=== PATIENT | female | born 1975 | race Caucasian/White ===

== ENCOUNTER 2017-05-08 00:26 | Emergency (ER) | payer MEDICAID ==
[~2017-05-08] VITALS: Ht 170.2 cm; Wt 85.0 kg
[2017-05-08] MEDS ORDERED: TRAMADOL 50MG TABLET PO ONE (03:00)
[2017-05-08] MEDS ORDERED: KETOROLAC 60MG/2ML VIAL IM ONE (04:30)
[2017-05-08 05:22] VITALS: BP 117/79
== END 2017-05-08 05:24 | disposition home or self-care (01) ==
LOC: ER 03:16
DX: M25.562 Pain in left knee (principal); I11.0 Hypertensive heart disease with heart failure; I50.9 Heart failure, unspecified; F17.200 Nicotine dependence, unspecified, uncomplicated; F12.10 Cannabis abuse, uncomplicated; F41.9 Anxiety disorder, unspecified; Z86.718 Personal history of other venous thrombosis and embolism; Z88.8 Allergy status to other drugs, medicaments and biological substances
CPT/HCPCS: 73552; 73562; 73590; 96372; 99284; J1885

== ENCOUNTER 2017-10-17 08:42 | Emergency (ER) | payer MEDICAID ==
[~2017-10-17] VITALS: Ht 172.7 cm; Wt 77.6 kg
[2017-10-17 09:03] VITALS: BP 119/71
[2017-10-17] MEDS ORDERED: BACITRACIN ZINC OINT UDPKT TOP ONE (10:45)
[2017-10-17] MEDS ORDERED: LIDOCAINE HCL 1% 20ML VIAL (Pyxis) INJ MC ONE (10:45)
[2017-10-17] MEDS ORDERED: SODIUM CHLORIDE 0.9% 1000ML BAG (SEPSIS BOLUS) IV ONE (10:45)
[2017-10-17] MEDS ORDERED: IBUPROFEN 600MG TABLET PO ONE (12:00)
[2017-10-17] MEDS ORDERED: AMOXICILLIN/POTASSIUM CLAVULANATE 875/125MG TAB PO ONE (12:00)
[2017-10-17] MEDS ORDERED: ACETAMINOPHEN 500MG TABLET PO ONE (12:00)
[2017-10-17] MEDS ORDERED: CEPHALEXIN 500MG CAPSULE PO ONE (12:00)
== END 2017-10-17 12:15 | disposition home or self-care (01) ==
LOC: ER 09:08
DX: L02.414 Cutaneous abscess of left upper limb (principal); I11.0 Hypertensive heart disease with heart failure; I50.9 Heart failure, unspecified; F17.200 Nicotine dependence, unspecified, uncomplicated; F12.10 Cannabis abuse, uncomplicated; F11.10 Opioid abuse, uncomplicated
CPT/HCPCS: 10060; 87070; 87077; 87205; 99284; J3490; 99283; J7030

== ENCOUNTER 2017-10-23 20:16 | Emergency (ER) | payer MEDICAID ==
[~2017-10-23] VITALS: Ht 172.7 cm; Wt 80.0 kg
[2017-10-24] MEDS ORDERED: SODIUM CHLORIDE 0.9% 1,000 ML IV ONE (01:22)
[2017-10-24 02:02] LABS: CHLORIDE 104 mEq/L (98-107)
[2017-10-24 02:04] LABS: BASOPHILS % 0.6 % (0.0-2.0); CLARITY URINE CLOUDY (CLEAR); COLOR URINE DARK YELLOW (YELLOW); EOSINOPHILS % 2.8 % (0.0-5.0); GLUCOSE URINE NEGATIVE (NEGATIVE); HEMATOCRIT. 34.6 % (36.0-48.0); HEMOGLOBIN. 11.2 g/dL (12.0-16.0); KETONES URINE NEGATIVE (NEGATIVE); LEUKOCYTE ESTERASE URINE NEGATIVE (NEGATIVE); LYMPHOCYTES % 23.9 % (20.0-50.0); MEAN CORPUSCULAR HEMOGLOBIN 27.2 pg (28.0-32.0); MEAN CORPUSCULAR VOLUME 84.1 fL (81.0-99.0); MEAN PLATELET VOLUME 7.7 fl (7.4-10.4); MONOCYTES % 9.1 % (2.0-8.0); NEUTROPHILS % 63.6 % (40.0-76.0); NITRITE URINE NEGATIVE (NEGATIVE); OCCULT BLOOD URINE NEGATIVE (NEGATIVE); PLATELET 308 x1000/uL (130-400); PROTEIN URINE 2+ (NEGATIVE); RED BLOOD CELL COUNT 4.11 mill/uL (4.2-5.4); RED CELL DISTRIBUTION WIDTH 14.8 % (11.6-14.6); SPECIFIC GRAVITY URINE 1.033 (1.005-1.030)
[2017-10-24 02:11] LABS: CARBON DIOXIDE 28 mEq/L (21-32); ETHANOL BLOOD < 10 mg/dL
[2017-10-24 03:38] VITALS: BP 142/91
[2017-10-24 15:35] LABS: *BARBITURATES SCREEN URINE NEGATIVE (NEGATIVE); *BENZODIAZEPINES SCREEN URINE NEGATIVE (NEGATIVE); *COCAINE SCREEN URINE NEGATIVE (NEGATIVE); METHADONE URINE SCREEN NEGATIVE (NEGATIVE); PHENCYCLIDINE URINE SCREEN NEGATIVE (NEGATIVE)
[2017-10-24 15:40] LABS: *AMPHETAMINES SCREEN URINE PRESUMTIVE POSITIVE (NEGATIVE); CANNABINOID URINE SCREEN PRESUMTIVE POSITIVE (NEGATIVE); OPIATES URINE SCREEN PRESUMTIVE POSITIVE (NEGATIVE)
== END 2017-10-24 05:21 | disposition left against medical advice (07) ==
LOC: ER 20:16
DX: T40.1X1A Poisoning by heroin, accidental (unintentional), initial encounter (principal); E86.0 Dehydration; I11.0 Hypertensive heart disease with heart failure; I50.9 Heart failure, unspecified; F17.200 Nicotine dependence, unspecified, uncomplicated; F15.10 Other stimulant abuse, uncomplicated; Z88.6 Allergy status to analgesic agent; Y92.89 Other specified places as the place of occurrence of the external cause
CPT/HCPCS: 36415; 80053; 80305; 81001; 81025; 85025; 96360; 96361; 99285; G0482; Z7610; J7030

== ENCOUNTER 2017-11-23 02:28 | Emergency (ER) | payer MEDICAID ==
[~2017-11-23] VITALS: Ht 172.7 cm; Wt 78.0 kg
[2017-11-23 02:41] VITALS: BP 130/88
== END 2017-11-23 07:38 | disposition left against medical advice (07) ==
LOC: ER 02:28
DX: Z53.21 Procedure and treatment not carried out due to patient leaving prior to being seen by health care provider (principal)

== ENCOUNTER 2017-11-23 13:29 | Emergency (ER) | payer MEDICAID | END 2017-11-23 14:25 | disposition left against medical advice (07) | LOC: ER 14:14 | DX: Z53.21 Procedure and treatment not carried out due to patient leaving prior to being seen by health care provider (principal) ==

== ENCOUNTER 2017-11-23 14:55 | Emergency (ER) | payer MEDICAID ==
[~2017-11-23] VITALS: Ht 172.7 cm; Wt 78.0 kg
[2017-11-23 15:38] VITALS: BP 123/65
== END 2017-11-23 18:59 | disposition left against medical advice (07) ==
LOC: ER 16:38
DX: Z53.21 Procedure and treatment not carried out due to patient leaving prior to being seen by health care provider (principal)

== ENCOUNTER 2018-02-16 08:19 | Emergency (ER) | payer MEDICAID ==
[~2018-02-16] VITALS: Ht 170.2 cm; Wt 72.0 kg
[~2018-02-16 08:19] MED LIST: ALPR2TAB2 PO
[2018-02-16 08:59] VITALS: BP 142/101
== END 2018-02-16 09:34 | disposition left against medical advice (07) ==
LOC: ER 08:29
DX: Z53.21 Procedure and treatment not carried out due to patient leaving prior to being seen by health care provider (principal); I50.9 Heart failure, unspecified; I10 Essential (primary) hypertension; M79.7 Fibromyalgia; F19.10 Other psychoactive substance abuse, uncomplicated

== ENCOUNTER 2018-02-19 17:57 | Emergency (ER) | payer MEDICAID ==
[~2018-02-19] VITALS: Ht 170.2 cm; Wt 80.0 kg
[2018-02-19 18:13] VITALS: BP 121/73
[2018-02-19] MEDS ORDERED: IBUPROFEN 600MG TABLET PO STA (18:21)
[2018-02-19 18:50] LABS: BASOPHILS % 0.5 % (0.0-2.0); EOSINOPHILS % 3.6 % (0.0-5.0); HEMATOCRIT. 33.2 % (36.0-48.0); HEMOGLOBIN. 10.6 g/dL (12.0-16.0); LYMPHOCYTES % 26.6 % (20.0-50.0); MEAN CORPUSCULAR VOLUME 77.8 fL (81.0-99.0); MEAN PLATELET VOLUME 7.9 fl (7.4-10.4); MONOCYTES % 7.5 % (2.0-8.0); NEUTROPHILS % 61.8 % (40.0-76.0); PLATELET 311 x1000/uL (130-400); RED BLOOD CELL COUNT 4.26 mill/uL (4.2-5.4); RED CELL DISTRIBUTION WIDTH 18.1 % (11.6-14.6)
[2018-02-19 18:58] LABS: CHLORIDE 102 mEq/L (98-107)
[2018-02-19] MEDS ORDERED: CEPHALEXIN 500MG CAPSULE PO ONE (19:30)
[2018-02-19] MEDS ORDERED: SULFAMETHOXAZOLE/TRIMETHOPRIM 800/160MG TABLET PO ONE (19:30)
== END 2018-02-19 20:14 | disposition home or self-care (01) ==
LOC: ER 18:32
DX: L03.113 Cellulitis of right upper limb (principal); M54.9 Dorsalgia, unspecified; F15.10 Other stimulant abuse, uncomplicated; I50.9 Heart failure, unspecified; F17.200 Nicotine dependence, unspecified, uncomplicated; Z88.6 Allergy status to analgesic agent
CPT/HCPCS: 36415; 80053; 85025; 99285

== ENCOUNTER 2018-06-18 07:39 | Emergency (ER) | payer MEDICAID ==
[~2018-06-18] VITALS: Ht 172.7 cm; Wt 70.0 kg
[2018-06-18 07:50] VITALS: BP 136/81
== END 2018-06-18 10:26 | disposition left against medical advice (07) ==
LOC: ER 07:39
DX: L02.11 Cutaneous abscess of neck (principal); Z53.21 Procedure and treatment not carried out due to patient leaving prior to being seen by health care provider

== ENCOUNTER 2020-01-19 11:23 | Emergency (ER) | payer SELFPAY ==
[~2020-01-19] VITALS: Ht 170.2 cm; Wt 66.0 kg
[2020-01-19 11:26] VITALS: BP 130/81
[2020-01-19] MEDS ORDERED: SULFAMETHOXAZOLE/TRIMETHOPRIM 800/160MG TABLET PO ONE (11:45)
[2020-01-19] MEDS ORDERED: CEPHALEXIN 250MG CAPSULE PO ONE (11:45)
[2020-01-25] MEDS ORDERED: SERT100T PO (06:21)
== END 2020-01-19 12:38 | disposition home or self-care (01) ==
LOC: ER 11:23
DX: Z02.2 Encounter for examination for admission to residential institution (principal); F15.10 Other stimulant abuse, uncomplicated; F11.10 Opioid abuse, uncomplicated; L02.416 Cutaneous abscess of left lower limb; Z71.51 Drug abuse counseling and surveillance of drug abuser
CPT/HCPCS: 99283

== ENCOUNTER 2024-01-31 14:07 | Emergency (ER) | payer OTHER ==
[~2024-01-31] VITALS: Ht 170.2 cm; Wt 68.0 kg
[~2024-01-31 14:07] MED LIST changes: +CARV6.2548 MT; +FURO-151 PO; +SERT100T PO
[2024-01-31 14:24] VITALS: O2SAT 100
[2024-01-31 16:10] LABS: BASOPHILS % 0.5 % (0.0-2.0); EOSINOPHILS % 2.1 % (0.0-5.0); HEMATOCRIT. 37.4 % (36.0-48.0); HEMOGLOBIN. 12.2 g/dL (12.0-16.0); LYMPHOCYTES % 16.7 % (20.0-50.0); MEAN CORPUSCULAR HEMOGLOBIN 28.1 pg (28.0-32.0); MEAN CORPUSCULAR HGB CONC 32.6 g/dL (31.0-37.0); MEAN CORPUSCULAR VOLUME 86.1 fL (81.0-99.0); MEAN PLATELET VOLUME 9.1 fl (7.4-10.4); MONOCYTES % 8.8 % (2.0-8.0); NEUTROPHILS % 71.9 % (40.0-76.0); PLATELET 225 x1000/uL (130-400); RED BLOOD CELL COUNT 4.35 mill/uL (4.2-5.4); RED CELL DISTRIBUTION WIDTH 16.3 % (11.6-14.6); WHITE BLOOD COUNT 7.6 x1000/uL (4.5-11.0)
[2024-01-31 16:24] LABS: INR 1.1; PROTHROMBIN TIME 12.5 sec (9.6-11.0)
[2024-01-31 16:29] LABS: ALANINE AMINOTRANSFERASE 20 IU/L (10-49); ALBUMIN 3.8 g/dL (3.2-4.8); ASPARTATE AMINOTRANSFERASE 32 IU/L (<34); BILIRUBIN TOTAL 1.3 mg/dL (0.1-1.0); CALCIUM 8.7 mg/dL (8.7-10.4); CARBON DIOXIDE 27 mEq/L (21-32); CHLORIDE 99 mEq/L (98-107); CREATININE 1.1 mg/dL (0.6-1.0); GLUCOSE 121 mg/dL (70-105); POTASSIUM 3.5 mEq/L (3.5-5.1); PROTEIN TOTAL 7.3 g/dL (6.0-8.3); SODIUM 134 mEq/L (136-145); TROPONIN I HIGH SENSITIVITY 26 ng/L (3.0-34); UREA NITROGEN BLOOD 20 mg/dL (9-23)
[2024-01-31] MEDS ORDERED: POTA-354 MT (17:36)
[2024-01-31] MEDS: FUROSEMIDE 40MG TABLET PO NR (18:25)
[2024-01-31] MEDS: POTASSIUM CHLORIDE 20MEQ TABLET SR PO NR (18:25)
[2024-01-31 18:27] VITALS: BP 120/80; PULSE 100; RESP 18; TEMP 97.9
== END 2024-01-31 18:28 | disposition home or self-care (01) ==
LOC: ER 14:07
DX: I50.9 Heart failure, unspecified (principal); F41.9 Anxiety disorder, unspecified; I11.0 Hypertensive heart disease with heart failure; Z98.890 Other specified postprocedural states; Z88.8 Allergy status to other drugs, medicaments and biological substances
CPT/HCPCS: 36415; 71045; 80053; 83880; 84484; 85025; 93005; 99285

== ENCOUNTER 2024-04-23 20:27 | Inpatient (IN) | payer OTHER ==
[~2024-04-23] VITALS: Ht 165.1 cm; Wt 75.7 kg
[~2024-04-23 20:27] MED LIST changes: +ASPI-1497 MT; +ATOR20TA65 MT; +CARV3.1242 MT; -CARV6.2548 MT; -FURO-151 PO; +FURO80TA3 MT; +FURO80TA87 MT; +HYDR-4009 MT; +LOSA25TA26 MT; +POTA-354 MT; +SPIR25TA6 MT
[2024-04-23 20:37] VITALS: O2SAT 96
[2024-04-23] MEDS: FUROSEMIDE 40MG/4ML VIAL IVP STA (21:37)
[2024-04-23 22:09] LABS: BG BASE EXCESS -4.6 mmol/L (-2.0-2.0); BG CARBOXYHEMOGLOBIN 1.1 % (0.5-1.5); BG DEOXYHEMOGLOBIN 4.5 % (0.0-5.0); BG HCO3 ACT 18.6 mmol/L (22.0-26.0); BG METHEMOGLOBIN 0.2 % (0.0-1.5); BG OXYGEN SATURATION 95.4 % (92.0-98.5); BG OXYHEMOGLOBIN 94.2 % (94.0-97.0); BG PCO2 29.1 mmHg (35.0-45.0); BG PH 7.423 (7.350-7.450); BG PO2 82.5 mmHg (75.0-100.0); BG SAMPLE SITE RIGHT BRACHIAL; BG TOTAL HEMOGLOBIN 13.4 g/dL (12.0-18.0); BG VENT MODE ROOM AIR
[2024-04-23 22:10] LABS: BASOPHILS % 0.6 % (0.0-2.0); EOSINOPHILS % 0.6 % (0.0-5.0); HEMATOCRIT. 36.1 % (36.0-48.0); HEMOGLOBIN. 11.8 g/dL (12.0-16.0); LYMPHOCYTES % 24.5 % (20.0-50.0); MEAN CORPUSCULAR HEMOGLOBIN 28.3 pg (28.0-32.0); MEAN CORPUSCULAR HGB CONC 32.6 g/dL (31.0-37.0); MEAN CORPUSCULAR VOLUME 86.9 fL (81.0-99.0); MEAN PLATELET VOLUME 8.8 fl (7.4-10.4); MONOCYTES % 14.1 % (2.0-8.0); NEUTROPHILS % 60.2 % (40.0-76.0); PLATELET 272 x1000/uL (130-400); RED BLOOD CELL COUNT 4.15 mill/uL (4.2-5.4); RED CELL DISTRIBUTION WIDTH 18.1 % (11.6-14.6); WHITE BLOOD COUNT 6.2 x1000/uL (4.5-11.0)
[2024-04-23 22:24] LABS: CHLORIDE 103 mEq/L (98-107); POTASSIUM 3.8 mEq/L (3.5-5.1); SODIUM 133 mEq/L (136-145)
[2024-04-23 22:25] LABS: CARBON DIOXIDE 20 mEq/L (21-32)
[2024-04-23 22:26] LABS: CALCIUM 8.9 mg/dL (8.7-10.4)
[2024-04-23 22:27] LABS: HCG SCREEN NEGATIVE
[2024-04-23 22:30] LABS: CREATININE 1.1 mg/dL (0.6-1.0); GLUCOSE 103 mg/dL (70-105); UREA NITROGEN BLOOD 26 mg/dL (9-23)
[2024-04-23 22:34] LABS: TROPONIN I HIGH SENSITIVITY 40 ng/L (3.0-34)
[2024-04-24] MEDS: ASPIRIN 325MG EC TABLET PO NR (04:55)
[2024-04-24] MEDS: ENOXAPARIN 60MG/0.6ML SYR SUBCUT NR (04:56)
[2024-04-24] MEDS ORDERED: ONDANSETRON HCL 4MG/2ML INJ IV PRN (11:00)
[2024-04-24] MEDS ORDERED: CLONIDINE 0.1MG TABLET PO PRN (11:00)
[2024-04-24] MEDS ORDERED: ACETAMINOPHEN 325MG TABLET PO PRN ×2 (11:00)
[2024-04-24] MEDS ORDERED: DOCUSATE SODIUM 100MG CAPSULE PO PRN (11:00)
[2024-04-24] MEDS: FUROSEMIDE 40MG/4ML VIAL IVP SCH ×2 (11:00→18:00)
[2024-04-24] MEDS ORDERED: IPRATROPIUM/ALBUTEROL 0.5-3(2.5)MG/3ML NEB HHN PRN (11:00)
[2024-04-24] MEDS: SPIRONOLACTONE 25MG TABLET PO SCH (12:00)
[2024-04-24 17:25] VITALS: BP 113/63; PULSE 102; RESP 20; TEMP 97.9
[2024-04-24 18:19] VITALS: BP 113/73; PULSE 102; RESP 20; TEMP 97.1
[2024-04-24 20:00] VITALS: BP 125/83; PULSE 101; RESP 20; TEMP 97.6
[2024-04-24] MEDS: LORAZEPAM 0.5MG TABLET PO PRN (20:10)
[2024-04-25 00:01] VITALS: BP 123/81; PULSE 105; RESP 20; TEMP 97.6
[2024-04-25 03:28] VITALS: BP 127/91; PULSE 99; RESP 20; TEMP 97
[2024-04-25 06:06] LABS: BASOPHILS % 0.6 % (0.0-2.0); EOSINOPHILS % 1.4 % (0.0-5.0); HEMATOCRIT. 40.3 % (36.0-48.0); HEMOGLOBIN. 13.2 g/dL (12.0-16.0); LYMPHOCYTES % 13.7 % (20.0-50.0); MEAN CORPUSCULAR HEMOGLOBIN 28.5 pg (28.0-32.0); MEAN CORPUSCULAR HGB CONC 32.6 g/dL (31.0-37.0); MEAN CORPUSCULAR VOLUME 87.3 fL (81.0-99.0); MEAN PLATELET VOLUME 8.8 fl (7.4-10.4); MONOCYTES % 9.5 % (2.0-8.0); NEUTROPHILS % 74.8 % (40.0-76.0); PLATELET 239 x1000/uL (130-400); RED BLOOD CELL COUNT 4.62 mill/uL (4.2-5.4); RED CELL DISTRIBUTION WIDTH 18.1 % (11.6-14.6); WHITE BLOOD COUNT 8.1 x1000/uL (4.5-11.0)
[2024-04-25 06:17] LABS: POTASSIUM 3.8 mEq/L (3.5-5.1)
[2024-04-25 06:18] LABS: CALCIUM 8.5 mg/dL (8.7-10.4)
[2024-04-25 06:22] LABS: CREATININE 1.1 mg/dL (0.6-1.0)
[2024-04-25 08:00] VITALS: BP 122/83; PULSE 100; RESP 18; TEMP 97.8
[2024-04-25] MEDS: ALPRAZOLAM 0.5 MG TABLET PO PRN (11:49)
[2024-04-25] MEDS: BUMETANIDE 1MG/4ML VIAL IV SCH (11:49)
[2024-04-25 12:00] VITALS: BP 134/84; PULSE 105; RESP 18; TEMP 97.6
[2024-04-25 12:45] LABS: CLARITY URINE CLEAR (CLEAR); COLOR URINE DARK YELLOW (YELLOW); GLUCOSE URINE NEGATIVE (NEGATIVE); KETONES URINE NEGATIVE (NEGATIVE); LEUKOCYTE ESTERASE URINE NEGATIVE (NEGATIVE); NITRITE URINE NEGATIVE (NEGATIVE); OCCULT BLOOD URINE NEGATIVE (NEGATIVE); PH URINE 5.5 (4.5-8.0); PROTEIN URINE 2+ (NEGATIVE); SPECIFIC GRAVITY URINE 1.034 (1.005-1.030)
[2024-04-25 12:51] LABS: *AMPHETAMINES SCREEN URINE PRESUMPTIVE POSITIVE (NEGATIVE); *BARBITURATES SCREEN URINE NEGATIVE (NEGATIVE); *BENZODIAZEPINES SCREEN URINE NEGATIVE (NEGATIVE); *COCAINE SCREEN URINE NEGATIVE (NEGATIVE); METHADONE URINE SCREEN NEGATIVE (NEGATIVE); OPIATES URINE SCREEN NEGATIVE (NEGATIVE)
[2024-04-25 12:52] LABS: CANNABINOID URINE SCREEN NEGATIVE (NEGATIVE); ECSTASY MDMA SCREEN URINE CONF.TEST INDICATED (NEGATIVE); PHENCYCLIDINE URINE SCREEN NEGATIVE (NEGATIVE)
[2024-04-25 13:00] LABS: RBC URINE 0-2 /hpf (0-2); WBC URINE 0-2 /hpf (0-2)
[2024-04-25 13:01] LABS: BACTERIA URINE NONE SEEN; SQUAMOUS EPITHELIAL CELL URINE 1+ /lpf (RARE/1+); YEAST URINE NONE SEEN
[2024-04-25 16:00] VITALS: BP 124/82; PULSE 68; RESP 18; TEMP 97.7
[2024-04-25 20:00] VITALS: BP 112/72; PULSE 94; RESP 18; TEMP 96.4
[2024-04-26] VITALS: BP 101/60; PULSE 60; RESP 18; TEMP 97
[2024-04-26 04:00] VITALS: PULSE 85; RESP 18; TEMP 97
[2024-04-26 05:56] LABS: BASOPHILS % 0.3 % (0.0-2.0); EOSINOPHILS % 3.5 % (0.0-5.0); HEMATOCRIT. 38.3 % (36.0-48.0); HEMOGLOBIN. 12.7 g/dL (12.0-16.0); LYMPHOCYTES % 21.3 % (20.0-50.0); MEAN CORPUSCULAR HEMOGLOBIN 28.2 pg (28.0-32.0); MEAN CORPUSCULAR HGB CONC 33.3 g/dL (31.0-37.0); MEAN CORPUSCULAR VOLUME 84.9 fL (81.0-99.0); MEAN PLATELET VOLUME 8.7 fl (7.4-10.4); MONOCYTES % 10.9 % (2.0-8.0); PLATELET 250 x1000/uL (130-400); RED BLOOD CELL COUNT 4.51 mill/uL (4.2-5.4); RED CELL DISTRIBUTION WIDTH 17.9 % (11.6-14.6); WHITE BLOOD COUNT 7.3 x1000/uL (4.5-11.0)
[2024-04-26 06:04] LABS: POTASSIUM 3.6 mEq/L (3.5-5.1)
[2024-04-26 06:06] LABS: CALCIUM 8.7 mg/dL (8.7-10.4)
[2024-04-26 08:00] VITALS: BP 115/69; PULSE 81; RESP 21; TEMP 97.6
[2024-04-26] MEDS: BUSPIRONE HCL 10MG TABLET PO SCH (09:00)
[2024-04-26] MEDS: SERTRALINE HCL 50MG TABLET PO SCH (09:00)
== END 2024-04-26 18:04 | disposition left against medical advice (07) | DRG 194 ==
LOC: ER 20:27 → 5WST 04-24 01:53 → EDBEDREQ 04-24 02:03 → 8WST 04-24 17:27
PROVIDERS: ADMIT Internal Medicine; ATTEND Internal Medicine
DX: I13.0 Hypertensive heart and chronic kidney disease with heart failure and stage 1 through stage 4 chronic kidney disease, or unspecified chronic kidney disease (principal); I42.0 Dilated cardiomyopathy; D64.9 Anemia, unspecified; I50.23 Acute on chronic systolic (congestive) heart failure; F41.9 Anxiety disorder, unspecified; I25.10 Atherosclerotic heart disease of native coronary artery without angina pectoris; Z20.822 Contact with and (suspected) exposure to COVID-19; J45.909 Unspecified asthma, uncomplicated; Z53.29 Procedure and treatment not carried out because of patient's decision for other reasons; N18.9 Chronic kidney disease, unspecified; Z91.148 Patient's other noncompliance with medication regimen for other reason; Z91.199 Patient's noncompliance with other medical treatment and regimen due to unspecified reason
CPT/HCPCS: 36415; 36600; 71045; 80048; 80305; 81003; 82375; 82805; 83880; 84484; 84703; 85025; 85379; 87426; 93005; 99291; J1650; J1940; J3490

== ENCOUNTER 2024-05-02 11:31 | Inpatient (IN) | payer OTHER ==
[~2024-05-02] VITALS: Ht 170.2 cm; Wt 87.1 kg
[2024-05-02 12:33] LABS: BASOPHILS % 0.6 % (0.0-2.0); EOSINOPHILS % 0.2 % (0.0-5.0); HEMATOCRIT. 42.2 % (36.0-48.0); HEMOGLOBIN. 13.7 g/dL (12.0-16.0); LYMPHOCYTES % 16.5 % (20.0-50.0); MEAN CORPUSCULAR HEMOGLOBIN 28.6 pg (28.0-32.0); MEAN CORPUSCULAR HGB CONC 32.4 g/dL (31.0-37.0); MEAN CORPUSCULAR VOLUME 88.4 fL (81.0-99.0); MEAN PLATELET VOLUME 8.8 fl (7.4-10.4); MONOCYTES % 7.9 % (2.0-8.0); NEUTROPHILS % 74.8 % (40.0-76.0); PLATELET 264 x1000/uL (130-400); RED BLOOD CELL COUNT 4.77 mill/uL (4.2-5.4); RED CELL DISTRIBUTION WIDTH 18.1 % (11.6-14.6); WHITE BLOOD COUNT 7.6 x1000/uL (4.5-11.0)
[2024-05-02 12:36] LABS: CHLORIDE 100 mEq/L (98-107); POTASSIUM 3.9 mEq/L (3.5-5.1); SODIUM 132 mEq/L (136-145)
[2024-05-02 12:37] LABS: CARBON DIOXIDE 23 mEq/L (21-32)
[2024-05-02 12:38] LABS: CALCIUM 9.1 mg/dL (8.7-10.4)
[2024-05-02 12:42] LABS: GLUCOSE 123 mg/dL (70-105)
[2024-05-02 12:43] LABS: UREA NITROGEN BLOOD 19 mg/dL (9-23)
[2024-05-02 12:45] LABS: TROPONIN I HIGH SENSITIVITY 34 ng/L (3.0-34)
[2024-05-02] MEDS ORDERED: ENALAPRIL 2.5MG/2ML VIAL 2ML IV ONE (13:30)
[2024-05-02] MEDS ORDERED: FUROSEMIDE 40MG/4ML VIAL IVP ONE (13:30)
[2024-05-02] MEDS: ENALAPRIL 1.25MG/ML VIAL 1ML IV NR (13:45)
[2024-05-02] MEDS ORDERED: FUROSEMIDE 40MG/4ML VIAL IVP NR (13:45)
[2024-05-02] MEDS: BUMETANIDE 1MG/4ML VIAL IV NR (15:15)
[2024-05-02] MEDS: FUROSEMIDE 40MG/4ML VIAL IVP SCH (20:00)
[2024-05-03] VITALS (7 sets, daily range): BP systolic 110–124; BP diastolic 78–89; PULSE 74–108; RESP 16–22; TEMP 96.6–98.6
[2024-05-03] MEDS ORDERED: HYDROCODONE/ACETAMINOPHEN 10/325MG TABLET PO PRN (01:15)
[2024-05-03] MEDS: ALPRAZOLAM 0.5 MG TABLET PO PRN (02:16)
[2024-05-03] MEDS ORDERED: NALOXONE HCL 0.4MG/ML VIAL IV PRN (03:00)
[2024-05-03 06:39] LABS: HEMOGLOBIN 11.6 g/dL (12.0-16.0); MEAN CORPUSCULAR HEMOGLOBIN 28.1 pg (28.0-32.0); MEAN CORPUSCULAR HGB CONC 33.1 g/dL (31.0-37.0); MEAN CORPUSCULAR VOLUME 84.9 fL (81.0-99.0); PLATELET 243 x1000/uL (130-400); RED BLOOD CELL COUNT 4.12 mill/uL (4.2-5.4); RED CELL DISTRIBUTION WIDTH 17.8 % (11.6-14.6); WHITE BLOOD COUNT 7.6 x1000/uL (4.5-11.0)
[2024-05-03 06:57] LABS: POTASSIUM 4.1 mEq/L (3.5-5.1)
[2024-05-03 06:58] LABS: CALCIUM 8.7 mg/dL (8.7-10.4)
[2024-05-03 07:05] LABS: CREATININE 1.1 mg/dL (0.6-1.0)
[2024-05-03] MEDS ORDERED: KETOROLAC 30MG/ML VIAL IV PRN (08:45)
[2024-05-03] MEDS: BUMETANIDE 1MG TABLET PO SCH (08:46)
[2024-05-03] MEDS: LOSARTAN 50 MG TABLET PO SCH (08:46)
[2024-05-03] MEDS: SERTRALINE HCL 50MG TABLET PO SCH (08:46)
[2024-05-03] MEDS: ASPIRIN 81MG TABLET PO SCH (08:46)
[2024-05-03] MEDS: ENOXAPARIN 40MG/0.4ML SYR SUBCUT SCH (08:47)
[2024-05-03] MEDS: ATORVASTATIN CALCIUM 20MG TABLET PO SCH (21:00)
[2024-05-03] MEDS ORDERED: SPIR25TA6 MT (21:05)
[2024-05-03] MEDS ORDERED: BUME1TAB9 MT (21:05)
[2024-05-03] MEDS ORDERED: LOSA25TA26 MT (21:05)
[2024-05-03] MEDS ORDERED: CARV3.1242 MT (21:05)
[2024-05-03 21:26] LABS: *AMPHETAMINES SCREEN URINE PRESUMPTIVE POSITIVE (NEGATIVE); *BENZODIAZEPINES SCREEN URINE PRESUMPTIVE POSITIVE (NEGATIVE)
[2024-05-03 21:27] LABS: *BARBITURATES SCREEN URINE NEGATIVE (NEGATIVE); *COCAINE SCREEN URINE NEGATIVE (NEGATIVE); CANNABINOID URINE SCREEN NEGATIVE (NEGATIVE); ECSTASY MDMA SCREEN URINE CONF.TEST INDICATED (NEGATIVE); METHADONE URINE SCREEN NEGATIVE (NEGATIVE); OPIATES URINE SCREEN NEGATIVE (NEGATIVE); PHENCYCLIDINE URINE SCREEN NEGATIVE (NEGATIVE)
[2024-05-03] MEDS: ALPRAZOLAM 0.5 MG TABLET PO NR (22:35)
[2024-05-04] VITALS: BP 106/79; PULSE 98; RESP 20; TEMP 97.9
[2024-05-04 04:00] VITALS: BP 117/75; PULSE 93; RESP 18; TEMP 98.2
[2024-05-04 08:00] VITALS: BP 112/74; PULSE 100; RESP 20; TEMP 97.1
[2024-05-04 12:00] VITALS: BP 103/71; PULSE 88; RESP 22; TEMP 98.4
[2024-05-04 15:04] VITALS: BP 103/71; PULSE 88; TEMP 98.4; O2SAT 99
[2024-05-04] MEDS ORDERED: BUDESONIDE 0.5MG/2ML NEB HHN SCH (16:30)
[2024-05-04] MEDS ORDERED: IPRATROPIUM/ALBUTEROL 0.5-3(2.5)MG/3ML NEB HHN SCH (18:00)
== END 2024-05-04 17:10 | disposition home or self-care (01) | DRG 194 ==
LOC: ER 11:31 → 5WST 13:35 → EDBEDREQTM 13:36 → EDBEDREQ 13:36 → 7WST 05-03 00:04
PROVIDERS: ADMIT Internal Medicine; ATTEND Internal Medicine
DX: I11.0 Hypertensive heart disease with heart failure (principal); J96.01 Acute respiratory failure with hypoxia; I42.9 Cardiomyopathy, unspecified; F17.210 Nicotine dependence, cigarettes, uncomplicated; F15.90 Other stimulant use, unspecified, uncomplicated; I50.23 Acute on chronic systolic (congestive) heart failure; Z59.00 Homelessness unspecified; Z91.148 Patient's other noncompliance with medication regimen for other reason
CPT/HCPCS: 36415; 71045; 80048; 80305; 83880; 84484; 85025; 85027; 85379; 93005; 93306; 99285; J1650; J1940; J3490

== ENCOUNTER 2024-08-05 10:02 | Inpatient (IN) | payer OTHER ==
[~2024-08-05] VITALS: Ht 170.2 cm; Wt 70.3 kg
[~2024-08-05 10:02] MED LIST changes: -ALPR2TAB2 PO; +BUME1TAB9 MT; -FURO80TA3 MT; -FURO80TA87 MT; -HYDR-4009 MT
[2024-08-05 10:07] VITALS: O2SAT 97
[2024-08-05] MEDS: PIPERACILLIN/TAZO 3.375G/50ML 50 ML IV ONE (11:16)
[2024-08-05 11:37] LABS: BASOPHILS % 0.6 % (0.0-2.0); EOSINOPHILS % 0.3 % (0.0-5.0); HEMATOCRIT. 31.1 % (36.0-48.0); HEMOGLOBIN. 9.8 g/dL (12.0-16.0); LYMPHOCYTES % 13.4 % (20.0-50.0); MEAN CORPUSCULAR HEMOGLOBIN 28.6 pg (28.0-32.0); MEAN CORPUSCULAR HGB CONC 31.4 g/dL (31.0-37.0); MEAN CORPUSCULAR VOLUME 91.4 fL (81.0-99.0); MEAN PLATELET VOLUME 8.2 fl (7.4-10.4); MONOCYTES % 13.1 % (2.0-8.0); NEUTROPHILS % 72.6 % (40.0-76.0); PLATELET 220 x1000/uL (130-400); RED CELL DISTRIBUTION WIDTH 18.5 % (11.6-14.6); WHITE BLOOD COUNT 6.9 x1000/uL (4.5-11.0)
[2024-08-05 11:38] LABS: CARBON DIOXIDE 27 mEq/L (21-32); CHLORIDE 101 mEq/L (98-107); POTASSIUM 3.9 mEq/L (3.5-5.1); SODIUM 134 mEq/L (136-145)
[2024-08-05 11:39] LABS: CALCIUM 8.6 mg/dL (8.7-10.4)
[2024-08-05 11:43] LABS: CREATININE 0.9 mg/dL (0.6-1.0); INR 1.1; PROTHROMBIN TIME 12.6 sec (9.6-11.0)
[2024-08-05 11:44] LABS: GLUCOSE 93 mg/dL (70-105); UREA NITROGEN BLOOD 12 mg/dL (9-23)
[2024-08-05 11:45] LABS: ALANINE AMINOTRANSFERASE 14 IU/L (10-49); ALBUMIN 3.9 g/dL (3.2-4.8); ASPARTATE AMINOTRANSFERASE 33 IU/L (<34); TROPONIN I HIGH SENSITIVITY 31 ng/L (3.0-34)
[2024-08-05 11:46] LABS: BILIRUBIN DIRECT 0.6 mg/dL (<=3.0); BILIRUBIN TOTAL 1.4 mg/dL (0.1-1.0); PROTEIN TOTAL 7.5 g/dL (6.0-8.3)
[2024-08-05] MEDS: SODIUM CHLORIDE 0.9% 250 ML IV ONE (11:56)
[2024-08-05 12:19] LABS: ETHANOL BLOOD < 10 mg/dL (<10)
[2024-08-05] MEDS: VANCOMYCIN 1G PREMIX 200 ML IV ONE (12:37)
[2024-08-05 12:46] LABS: HCG SCREEN NEGATIVE
[2024-08-05] MEDS ORDERED: FUROSEMIDE 40MG/4ML VIAL IVP SCH (13:00)
[2024-08-05 13:16] LABS: CLARITY URINE TURBID (CLEAR); COLOR URINE DARK YELLOW (YELLOW); GLUCOSE URINE NEGATIVE (NEGATIVE); KETONES URINE NEGATIVE (NEGATIVE); LEUKOCYTE ESTERASE URINE TRACE (NEGATIVE); NITRITE URINE NEGATIVE (NEGATIVE); OCCULT BLOOD URINE 3+ (NEGATIVE); PROTEIN URINE 3+ (NEGATIVE); SPECIFIC GRAVITY URINE 1.029 (1.005-1.030)
[2024-08-05 13:30] LABS: BACTERIA URINE 4+; SQUAMOUS EPITHELIAL CELL URINE 1+ /lpf (RARE/1+); YEAST URINE NONE SEEN
[2024-08-05 13:32] LABS: AMORPHOUS SEDIMENT URINE 2+ /lpf
[2024-08-05 13:35] LABS: *AMPHETAMINES SCREEN URINE PRESUMPTIVE POSITIVE (NEGATIVE); *BARBITURATES SCREEN URINE NEGATIVE (NEGATIVE); *BENZODIAZEPINES SCREEN URINE NEGATIVE (NEGATIVE); *COCAINE SCREEN URINE NEGATIVE (NEGATIVE); CANNABINOID URINE SCREEN NEGATIVE (NEGATIVE); ECSTASY MDMA SCREEN URINE NEGATIVE (NEGATIVE); METHADONE URINE SCREEN NEGATIVE (NEGATIVE); OPIATES URINE SCREEN NEGATIVE (NEGATIVE); PHENCYCLIDINE URINE SCREEN NEGATIVE (NEGATIVE)
[2024-08-05] MEDS ORDERED: DOCUSATE SODIUM 100MG CAPSULE PO PRN (14:45)
[2024-08-05] MEDS ORDERED: IPRATROPIUM/ALBUTEROL 0.5-3(2.5)MG/3ML NEB HHN PRN (14:45)
[2024-08-05] MEDS ORDERED: MAGNESIUM/ALUMINUM HYDROXIDE/SIMETHICONE 30ML UDC PO PRN (14:45)
[2024-08-05] MEDS ORDERED: GUAIFENESIN 200MG/10ML SUGAR FREE UDC PO PRN (14:45)
[2024-08-05] MEDS ORDERED: ONDANSETRON HCL 4MG/2ML INJ IV PRN (14:45)
[2024-08-05] MEDS ORDERED: ACETAMINOPHEN 325MG TABLET PO PRN ×2 (14:45)
[2024-08-05] MEDS ORDERED: CLONIDINE 0.1MG TABLET PO PRN (14:45)
[2024-08-05] MEDS: ENOXAPARIN 40MG/0.4ML SYR SUBCUT SCH (16:10)
[2024-08-05] MEDS: BUMETANIDE 1MG/4ML VIAL IV SCH (16:30)
[2024-08-05] MEDS: PIPERACILLIN/TAZO 3.375G/50ML 50 ML IV SCH (17:00)
[2024-08-05] MEDS ORDERED: AZITHROMYCIN 500MG/250ML 250 ML IV SCH ×2 (17:00→20:00)
[2024-08-05 17:49] LABS: BG BASE EXCESS 0.3 mmol/L (-2.0-3.0); BG CARBOXYHEMOGLOBIN 1.4 % (0.5-1.5); BG DEOXYHEMOGLOBIN 3.9 % (0.0-5.0); BG FRACTION INSPIRED OXYGEN 21; BG HCO3 ACT 24.3 mmol/L (21.0-28.0); BG METHEMOGLOBIN 0.3 % (0.5-1.5); BG OXYHEMOGLOBIN 94.4 % (94.0-98.0); BG PH 7.435 (7.350-7.450); BG PO2 82.8 mmHg (83.0-108.0); BG SAMPLE SITE RIGHT RADIAL; BG TOTAL HEMOGLOBIN 10.9 g/dL (12.0-16.0); BG VENT MODE ROOM AIR
[2024-08-05 20:00] VITALS: BP 120/83; PULSE 103; RESP 18; TEMP 37.11408; O2SAT 96
[2024-08-05 21:00] VITALS: BP 126/57; PULSE 102; RESP 18; TEMP 36.8072
[2024-08-05] MEDS: AZITHROMYCIN 500MG/250ML 250 ML IV SCH (21:53)
[2024-08-05] MEDS ORDERED: IOHEXOL-350 100 ML BOTTLE ONE (23:23)
[2024-08-06] VITALS (7 sets, daily range): BP systolic 95–129; BP diastolic 44–97; PULSE 80–98; RESP 18–20; TEMP 36.16956–36.78072; O2SAT 96–99
[2024-08-06] MEDS: VANCOMYCIN 1G PREMIX 200 ML IV SCH ×2 (01:01→22:40)
[2024-08-06 02:08] LABS: CREATINE KINASE 136 IU/L (34-145)
[2024-08-06 02:09] LABS: AMMONIA 29 uMol/L (<32)
[2024-08-06] MEDS: ASPIRIN 81MG EC TABLET PO SCH (09:00)
[2024-08-06] MEDS: LOSARTAN 25 MG TABLET PO SCH (09:03)
[2024-08-06] MEDS: SPIRONOLACTONE 25MG TABLET PO SCH (09:03)
[2024-08-06] MEDS: KETOROLAC 30MG/ML VIAL IV PRN (13:42)
[2024-08-06] MEDS: PIPERACILLIN/TAZO 3.375G/50ML 50 ML IV SCH (14:00)
[2024-08-06] MEDS: IPRATROPIUM/ALBUTEROL 0.5-3(2.5)MG/3ML NEB HHN SCH (14:08)
[2024-08-06 16:46] LABS: BASOPHILS % 0.2 % (0.0-2.0); EOSINOPHILS % 0.5 % (0.0-5.0); HEMATOCRIT. 33.3 % (36.0-48.0); HEMOGLOBIN. 10.7 g/dL (12.0-16.0); LYMPHOCYTES % 9.6 % (20.0-50.0); MEAN CORPUSCULAR HGB CONC 32.1 g/dL (31.0-37.0); MEAN CORPUSCULAR VOLUME 90.4 fL (81.0-99.0); MEAN PLATELET VOLUME 8.8 fl (7.4-10.4); MONOCYTES % 9.9 % (2.0-8.0); NEUTROPHILS % 79.8 % (40.0-76.0); PLATELET 224 x1000/uL (130-400); RED BLOOD CELL COUNT 3.68 mill/uL (4.2-5.4); RED CELL DISTRIBUTION WIDTH 18.3 % (11.6-14.6); WHITE BLOOD COUNT 6.4 x1000/uL (4.5-11.0)
[2024-08-06 17:00] LABS: POTASSIUM 3.3 mEq/L (3.5-5.1)
[2024-08-06 17:01] LABS: CALCIUM 8.3 mg/dL (8.7-10.4); CHLORIDE 99 mEq/L (98-107); POTASSIUM 3.3 mEq/L (3.5-5.1); SODIUM 135 mEq/L (136-145)
[2024-08-06 17:02] LABS: CALCIUM 8.2 mg/dL (8.7-10.4); CARBON DIOXIDE 29 mEq/L (21-32)
[2024-08-06 17:07] LABS: GLUCOSE 102 mg/dL (70-105); UREA NITROGEN BLOOD 15 mg/dL (9-23)
[2024-08-06 17:09] LABS: ALANINE AMINOTRANSFERASE 12 IU/L (10-49); ALBUMIN 3.1 g/dL (3.2-4.8); ASPARTATE AMINOTRANSFERASE 26 IU/L (<34); BILIRUBIN TOTAL 1.1 mg/dL (0.1-1.0); PROTEIN TOTAL 6.5 g/dL (6.0-8.3); TROPONIN I HIGH SENSITIVITY 15 ng/L (3.0-34)
[2024-08-06 17:12] LABS: T4 FREE 1.12 ng/dL (0.89-1.76); THYROID STIMULATING HORMONE 0.26 uIU/mL (0.55-4.78)
[2024-08-06] MEDS: ATORVASTATIN CALCIUM 20MG TABLET PO SCH (22:40)
[2024-08-07] VITALS: BP 103/56; PULSE 81; RESP 18; TEMP 36.61404; O2SAT 99
[2024-08-07 04:00] VITALS: BP 94/44; PULSE 78; RESP 18; TEMP 36.50292; O2SAT 99
[2024-08-07 06:30] LABS: POTASSIUM 3.4 mEq/L (3.5-5.1)
[2024-08-07 06:32] LABS: CALCIUM 8.3 mg/dL (8.7-10.4)
[2024-08-07 06:34] LABS: BASOPHILS % 0.4 % (0.0-2.0); EOSINOPHILS % 4.1 % (0.0-5.0); HEMATOCRIT. 32.6 % (36.0-48.0); HEMOGLOBIN. 10.6 g/dL (12.0-16.0); LYMPHOCYTES % 18.5 % (20.0-50.0); MEAN CORPUSCULAR HEMOGLOBIN 29.4 pg (28.0-32.0); MEAN CORPUSCULAR HGB CONC 32.5 g/dL (31.0-37.0); MEAN CORPUSCULAR VOLUME 90.2 fL (81.0-99.0); MEAN PLATELET VOLUME 8.5 fl (7.4-10.4); MONOCYTES % 11.7 % (2.0-8.0); NEUTROPHILS % 65.3 % (40.0-76.0); PLATELET 222 x1000/uL (130-400); RED BLOOD CELL COUNT 3.61 mill/uL (4.2-5.4); RED CELL DISTRIBUTION WIDTH 18.1 % (11.6-14.6); WHITE BLOOD COUNT 5.7 x1000/uL (4.5-11.0)
[2024-08-07] MEDS ORDERED: SODIUM BICARBONATE 4% 2.4MEQ/5ML VIAL IV ONE (08:36)
[2024-08-07] MEDS ORDERED: LIDOCAINE HCL 1% 10 MG/ML 10ML VIAL ONE (08:36)
[2024-08-07 09:43] VITALS: PULSE 84; RESP 20
[2024-08-07] MEDS ORDERED: NALOXONE HCL 0.4MG/ML VIAL IV PRN (10:30)
[2024-08-07] MEDS ORDERED: HYDROCODONE/ACETAMINOPHEN 5/325MG TABLET PO PRN (10:30)
[2024-08-07] MEDS: HYDROCODONE/ACETAMINOPHEN 10/325MG TABLET PO PRN (10:35)
[2024-08-07] MEDS ORDERED: VANCOMYCIN 1.25GM PMX (XELLIA) 250 ML IV SCH (20:00)
== END 2024-08-07 11:55 | disposition left against medical advice (07) | DRG 812 ==
LOC: ER 10:17 → 5WST 12:48 → EDBEDREQ 12:50 → 8WST 19:46
PROVIDERS: ADMIT Internal Medicine; ATTEND Internal Medicine
PROC: 0J9M30Z Drainage of Left Upper Leg Subcutaneous Tissue and Fascia with Drainage Device, Percutaneous Approach (ICD-10-PCS; principal; 2024-08-07)
DX: T40.411A Poisoning by fentanyl or fentanyl analogs, accidental (unintentional), initial encounter (principal); J96.01 Acute respiratory failure with hypoxia; J69.0 Pneumonitis due to inhalation of food and vomit; G92.8 Other toxic encephalopathy; I50.23 Acute on chronic systolic (congestive) heart failure; K81.0 Acute cholecystitis; L02.416 Cutaneous abscess of left lower limb; I27.20 Pulmonary hypertension, unspecified; D68.9 Coagulation defect, unspecified; I27.21 Secondary pulmonary arterial hypertension; I11.0 Hypertensive heart disease with heart failure; F11.90 Opioid use, unspecified, uncomplicated; F17.200 Nicotine dependence, unspecified, uncomplicated; F12.10 Cannabis abuse, uncomplicated; F19.10 Other psychoactive substance abuse, uncomplicated; R74.8 Abnormal levels of other serum enzymes; I25.10 Atherosclerotic heart disease of native coronary artery without angina pectoris; F15.10 Other stimulant abuse, uncomplicated; T50.911A Poisoning by multiple unspecified drugs, medicaments and biological substances, accidental (unintentional), initial encounter; D64.9 Anemia, unspecified; N39.0 Urinary tract infection, site not specified; Z53.29 Procedure and treatment not carried out because of patient's decision for other reasons; Z79.899 Other long term (current) drug therapy; I25.2 Old myocardial infarction; Z59.00 Homelessness unspecified; Z79.82 Long term (current) use of aspirin; Z88.8 Allergy status to other drugs, medicaments and biological substances
CPT/HCPCS: 20611; 36415; 36600; 71045; 71275; 74174; 80048; 80053; 80061; 80076; 80202; 80305; 80320; 81003; 82140; 82375; 82550; 82805; 83605; 83880; 84145; 84439; 84443; 84484; 84703; 85025; 85379; 93005; 94640; 99285; J0456; J1650; J1885; J2543; J3370; J3490; J7050; L8514; Q9967; G0480

== ENCOUNTER 2024-09-25 18:45 | Emergency (ER) | payer OTHER ==
[~2024-09-25] VITALS: Ht 167.6 cm; Wt 73.0 kg
[2024-09-25 18:47] VITALS: TEMP 98; O2SAT 96
[2024-09-25] MEDS: ONDANSETRON HCL 4MG/2ML INJ IV STA (18:53)
[2024-09-25] MEDS: SODIUM CHLORIDE 0.9% 1,000 ML IV ONE (19:00)
[2024-09-25] MEDS: LORAZEPAM 2MG/ML INJ IM ONE (19:43)
[2024-09-25 19:46] VITALS: BP 155/120; PULSE 121; RESP 18; O2SAT 98
[2024-09-25 20:30] LABS: BASOPHILS % 0.7 % (0.0-2.0); EOSINOPHILS % 0.7 % (0.0-5.0); HEMATOCRIT. 38.1 % (36.0-48.0); HEMOGLOBIN. 12.2 g/dL (12.0-16.0); LYMPHOCYTES % 13.8 % (20.0-50.0); MEAN CORPUSCULAR HEMOGLOBIN 26.4 pg (28.0-32.0); MEAN CORPUSCULAR VOLUME 82.5 fL (81.0-99.0); MEAN PLATELET VOLUME 8.9 fl (7.4-10.4); MONOCYTES % 11.9 % (2.0-8.0); NEUTROPHILS % 72.9 % (40.0-76.0); PLATELET 312 x1000/uL (130-400); RED BLOOD CELL COUNT 4.61 mill/uL (4.2-5.4); RED CELL DISTRIBUTION WIDTH 19.9 % (11.6-14.6); WHITE BLOOD COUNT 8.3 x1000/uL (4.5-11.0)
[2024-09-25 20:39] LABS: HCG SCREEN NEGATIVE
[2024-09-25 20:40] LABS: CHLORIDE 106 mEq/L (98-107); POTASSIUM 3.9 mEq/L (3.5-5.1); SODIUM 139 mEq/L (136-145)
[2024-09-25 20:41] LABS: CARBON DIOXIDE 23 mEq/L (21-32)
[2024-09-25 20:42] LABS: CALCIUM 9.5 mg/dL (8.7-10.4)
[2024-09-25 20:46] LABS: CREATININE 1.3 mg/dL (0.6-1.0); GLUCOSE 99 mg/dL (70-105); UREA NITROGEN BLOOD 30 mg/dL (9-23)
[2024-09-25 20:48] LABS: ACETAMINOPHEN < 2 ug/mL (10-30)
[2024-09-25 21:12] LABS: ETHANOL BLOOD < 10 mg/dL (<10)
[2024-09-25] MEDS ORDERED: NALO4SPR BOTHNSTRLS (21:15)
== END 2024-09-25 23:13 | disposition home or self-care (01) ==
LOC: ER 18:45
DX: T40.2X1A Poisoning by other opioids, accidental (unintentional), initial encounter (principal); I11.0 Hypertensive heart disease with heart failure; I50.9 Heart failure, unspecified; Z88.8 Allergy status to other drugs, medicaments and biological substances; Z79.899 Other long term (current) drug therapy; Y92.9 Unspecified place or not applicable
CPT/HCPCS: 80048; 80307; 80329; 80320; 84703; 85025; 36415; 96372; 99283; J2060; J2405; J7030; Z7610 ×3; G0480